=== PATIENT | female | born 1995 | race Caucasian/White ===

== ENCOUNTER 2016-03-07 11:41 | Emergency (ER) | payer OTHER ==
[~2016-03-07] VITALS: Ht 162.6 cm; Wt 64.9 kg
[~2016-03-07 11:41] MED LIST: LAMO150T PO; SERT-234 PO
[2016-03-07 11:55] VITALS: TEMP 36.8; Ht 162.6 cm; Wt 64.9 kg
[2016-03-07 13:19] LABS: BASO % 0.1 %; BASO ABS # 0.01 K/uL (0-0.2); COMPLETE YES; EOS % 0.9 %; HEMATOCRIT 36.3 % (37-47); IG% 0.1 %; LYMPH % 20.3 %; LYMPH ABS # 1.38 K/uL (1.2-3.4); MEAN CELL VOLUME 87.5 fL (80-100); MEAN CORPUSCULAR HEMOGLOBIN 30.6 pg (25-34); MEAN PLATELET VOLUME 10.9 fL (7.4-10.4); NEUT % 70.6 %; PLATELET COUNT 178 K/uL (130-400); RED BLOOD COUNT 4.15 M/uL (4.2-5.4); WHITE BLOOD COUNT 6.79 K/uL (4.8-10.8)
[2016-03-07 13:36] LABS: BUN/CREATININE RATIO 9.5 (10-20); CALCIUM 8.7 mg/dl (8.5-10.1); CREATININE 0.69 mg/dl (0.60-1.20); POTASSIUM 3.7 mmol/L (3.5-5.1)
[2016-03-07 13:39] LABS: URINE APPEARANCE CLOUDY (CLEAR); URINE BILIRUBIN NEG (NEG); URINE COLOR DK YELLOW; URINE EPITHELIAL CELL AUTO >30 /lpf (0-5); URINE NITRITE NEG (NEG); URINE SPECIFIC GRAVITY 1.035 (1.000-1.030); UROBILINOGEN NEG (NEG)
[2016-03-07 13:42] LABS: MANUAL MICROSCOPIC REQUIRED? NO; REVIEW REQ? NO
--- NOTE | 2016-03-07 14:51 | DIAGNOSTIC IMAGING REPORT ---
ECTOPIC ULTRASOUND (TRANSABDOMINAL AND ENDOVAGINAL SCANNING) CLINICAL HISTORY: and vaginal bleeding COMPARISON STUDY: 02/12/2016 FINDINGS: A single alive intrauterine gestation was identified. The heart rate was 159. A yolk sac measuring 4 mm was identified. The crown-rump length was 15 mm corresponding to an estimated postmenstrual age of 7 weeks and 6 days. The maternal adnexa were unremarkable in appearance. IMPRESSION: Single alive intrauterine . The estimated postmenstrual age is 7 weeks 6 days. Electronically signed by: Yobany Chaney M.D. 03/07/2016 2:49 PM
[2016-03-07 15:25] LABS: PROTHROMBIN TIME (PATIENT) 10.3 SECONDS (9.0-12.0)
--- NOTE | 2016-03-07 15:29 | EMERGENCY ROOM VISIT NOTE ---
ED Visit Note First contact with patient: 12:11 CHIEF COMPLAINT: Vaginal bleeding, 6-8 weeks HISTORY OF PRESENT ILLNESS: Patient is a roughly 6 week 20 year- old white female who presents to the emergency complaint accompanied by a male friend for evaluation of vaginal bleeding that started this morning. Patient was seen here in the emergency department on 02/12/16, and found to have an early . She reports that her last menstrual period was 01/12/2016. She had positive home tests at home. She had an appointment to be seen by Dr. Au, but apparently it was canceled and was rescheduled for 2 days from now. She has yet to see OB. Patient states that she has been feeling well until today. She noticed bright red blood in her underwear when she wiped after urinating at home this morning. She also notes some pelvic cramping and sharp shooting pains into the vaginal area which are improving as the morning has gone on. When she provided a urine sample here in the emergency department, she had some pink discharge. She continues to note some mild cramping that she rates a 4/10. REVIEW OF SYSTEMS: Review of systems as per HPI. All other systems reviewed were negative. 10 systems reviewed. PMH: Electronic medical records are reviewed and summarized as above/below. See Problem List. SOCIAL HISTORY: Patient lives at home with her son. Nonsmoker, denies alcohol use. She is unemployed.. PHYSICAL EXAM: Vital Signs: Reviewed Nurse's notes. CONSTITUTIONAL: Patient is a well-appearing 20-year-old white female who is awake and alert and in no acute distress. Vital signs are stable. EYES: Pupils equal, round, reactive to light and accommodation. EOMs intact without nystagmus. Sclera are anicteric. ENT: Tympanic membranes intact, with normal landmarks. External canals are clear. Oral and nasopharynx are clear. Mucous membranes are moist, no lesions , tongue and gums appear normal. NECK: Supple without lymphadenopathy. No thyromegaly. No meningeal signs. Full active range of motion without discomfort. CARDIOVASCULAR: Regular rate and rhythm, with normal S1 and S2, no murmur or gallop or rub is heard. No carotid bruits auscultated. No JVD. Peripheral pulses easily palpable. RESPIRATORY: Breath sounds equal and clear to auscultation without wheezes, rales, or rhonchi heard. Full and equal chest expansion without accessory muscle use or retractions. ABDOMEN: Bowel sounds are present. Abdomen is soft, slightly tender in the suprapubic region without guarding, rebound or rigidity. There is no right or left lower quadrant pain. INTEGUMENTARY: No lesions or rash, normal skin turgor. LYMPH: No lymphadenopathy. EMERGENCY DEPARTMENT COURSE: The patient was seen and examined as above. Her old records were reviewed, including her ED visit from about a month ago. Her blood type is A+ based on labs from that day. Repeat quantitative hCG, CBC, BMP and urinalysis were drawn. Pelvic ultrasound was performed. Her quantitative hCG is 61,167, which is consistent with her dates. BMP is unremarkable. Her white count was not elevated. She is not anemic. Urinalysis does show moderate leuk esterase, greater than 30 WBCs and 2+ bacteria. There is greater than 30 epithelial cells indicating contamination. She reports frequent UTIs. She was treated with Keflex just last month. Urine culture from that time did not grow any pathologic bacteria. Given this, repeat urine culture was ordered, but no antibiotics were described. Pelvic ultrasound confirms a single viable intrauterine measuring 6 weeks, 67 weeks 6 days with confirmed cardiac activity at 159 beats per minute. No other abnormalities were noted. The patient was reassured. Bleeding precautions were outlined. She was encouraged to keep her appointment with OB as she has scheduled for this Saturday. Differential diagnoses entertained included spontaneous , threatened , ectopic , PID, tubo-ovarian abscess, cervicitis, UTI, cystitis, among others. ECTOPIC ULTRASOUND (TRANSABDOMINAL AND ENDOVAGINAL SCANNING) CLINICAL HISTORY: and vaginal bleeding COMPARISON STUDY: 02/12/2016 FINDINGS: A single alive intrauterine gestation was identified. The heart rate was 159. A yolk sac measuring 4 mm was identified. The crown-rump length was 15 mm corresponding to an estimated postmenstrual age of 7 weeks and 6 days. The maternal adnexa were unremarkable in appearance. IMPRESSION: Single alive intrauterine . The estimated postmenstrual age is 7 weeks 6 days. Problem List Medical Problems: (1) Abdominal cramping Status: Resolved (2) Abdominal pain during Status: Resolved (3) Acute bronchitis Status: Resolved (4) Altered mental status Status: Resolved (5) Anxiety Status: Chronic (6) Asthma Status: Chronic (7) Chest pain Status: Resolved (8) Corneal abrasion due to contact lens Status: Resolved (9) Cough Status: Resolved (10) Cough Status: Resolved (11) Cough Status: Resolved (12) Dental trauma Status: Resolved (13) Dermatitis Status: Resolved (14) Dysfunctional uterine bleeding Status: Resolved (15) Epilepsy, Unsp, Not Intractable, Without Status Epilepticus Status: Chronic (16) Female pelvic pain Status: Resolved (17) LLQ abdominal pain Status: Resolved (18) Major Depressive Disorder, Recurrent, Moderate Status: Chronic (19) Paronychia of right middle finger Status: Resolved (20) Post-Traumatic Stress Disorder, Unspecified Status: Chronic (21) Status: Resolved (22) Seizures Status: Resolved (23) Sinusitis Status: Resolved (24) Stomach ulcer Status: Resolved (25) Suicide attempt Status: Resolved (26) Threatened miscarriage Status: Resolved (27) Tylenol overdose Status: Resolved (28) Urinary tract infection Status: Resolved (29) UTI (urinary tract infection) Status: Resolved (30) Vomiting Status: Resolved Surgical Problems: (1) H/O wisdom tooth extraction Status: Resolved Current/Historical Medications Scheduled Lamotrigine (Lamictal), 150 MG PO BID Sertraline (Zoloft), 100 MG PO DAILY Allergies Coded Allergies: POLLEN (Verified Allergy, Intermediate, runny eyes, sneezing, 03/07/16) Acetaminophen (Unverified Allergy, Unknown, POISONING, 03/07/16) Vital Signs Date Time Temp Pulse Resp B/P Pulse Ox O2 Delivery O2 Flow Rate FiO2 03/07/16 15:44 65 18 112/41 99 Room Air 03/07/16 14:48 68 20 128/56 98 Room Air 03/07/16 11:55 36.8 81 18 122/59 99 Room Air Laboratory Results 03/07/16 13:05 Red Blood Count 4.15, Mean Corpuscular Volume 87.5, Mean Corpuscular Hemoglobin 30.6, Mean Corpuscular Hemoglobin Concent 35.0, Mean Platelet Volume 10.9, Neutrophils (%) (Auto) 70.6, Lymphocytes (%) (Auto) 20.3, Monocytes (%) (Auto) 8.0, Eosinophils (%) (Auto) 0.9, Basophils (%) (Auto) 0.1, Neutrophils # (Auto) 4.79, Lymphocytes # (Auto) 1.38, Monocytes # (Auto) 0.54, Eosinophils # (Auto) 0.06, Basophils # (Auto) 0.01 03/07/16 13:05 Test 03/07/16 12:50 03/07/16 13:05 03/07/16 14:50 Urine Color DK YELLOW Urine Appearance CLOUDY (CLEAR) Urine pH 6.0 (4.5-7.5) Urine Specific [place] 1.035 (1.000-1.030) Urine Protein TRACE (NEG) Urine Glucose (UA) NEG (NEG) Urine Ketones NEG (NEG) Urine Occult Blood NEG (NEG) Urine Nitrite NEG (NEG) Urine Bilirubin NEG (NEG) Urine Urobilinogen NEG (NEG) Urine Leukocyte Esterase MODERATE (NEG) Urine WBC (Auto) >30 /hpf (0-5) Urine RBC (Auto) 0-4 /hpf (0-4) Urine Hyaline Casts (Auto) 10-30 /lpf (0-5) Urine Epithelial Cells (Auto) >30 /lpf (0-5) Urine Bacteria (Auto) 2+ (NEG) White Blood Count 6.79 K/uL (4.8-10.8) Red Blood Count 4.15 M/uL (4.2-5.4) Hemoglobin 12.7 g/dL (12.0-16.0) Hematocrit 36.3 % (37-47) Mean Corpuscular Volume 87.5 fL (80-100) Mean Corpuscular Hemoglobin 30.6 pg (25-34) Mean Corpuscular Hemoglobin Concent 35.0 g/dl (32-36) Platelet Count 178 K/uL (130-400) Mean Platelet Volume 10.9 fL (7.4-10.4) Neutrophils (%) (Auto) 70.6 % Lymphocytes (%) (Auto) 20.3 % Monocytes (%) (Auto) 8.0 % Eosinophils (%) (Auto) 0.9 % Basophils (%) (Auto) 0.1 % Neutrophils # (Auto) 4.79 K/uL (1.4-6.5) Lymphocytes # (Auto) 1.38 K/uL (1.2-3.4) Monocytes # (Auto) 0.54 K/uL (0.11-0.59) Eosinophils # (Auto) 0.06 K/uL (0-0.5) Basophils # (Auto) 0.01 K/uL (0-0.2) RDW Standard Deviation 40.7 fL (36.4-46.3) RDW Coefficient of Variation 12.6 % (11.5-14.5) Immature Granulocyte % (Auto) 0.1 % Immature Granulocyte # (Auto) 0.01 K/uL (0.00-0.02) Anion Gap 9.0 mmol/L (3-11) Est Creatinine Clear Calc Drug Dose 112.4 ml/min Estimated GFR () 145.2 Estimated GFR (Non- 125.3 BUN/Creatinine Ratio 9.5 (10-20) Calcium Level 8.7 mg/dl (8.5-10.1) Human Chorionic Gonadotropin, Quant 22653 mIU/mL Prothrombin Time 10.3 SECONDS (9.0-12.0) Prothromb Time International Ratio 1.0 (0.9-1.1) Activated Partial Thromboplast Time 26.0 SECONDS (21.0-31.0) Partial Thromboplastin Ratio 1.0 Departure Information Impression Primary Impression: Vaginal bleeding in patient at less than 20 weeks gestation Referrals Sumanth Scruggs M.D. (PCP) Patient Instructions [facility], [facility] Additional Instructions Acetaminophen(Tylenol) may be used for fever or pain. Use 1000mg every six hours as needed. Avoid using more than 3000mg in a 24 hour period. Rest and avoid any heavy lifting or strenuous activity. Strict vaginal rest-no tampons, douching or intercourse. Drink plenty of fluids. Diet as tolerated. Follow up with [facility] Saturday as scheduled. Return to the ED for worsening pain, heavier bleeding (soaking a pad in an hour or less, passing clots larger than your fist), lightheadedness, dizziness, passing out, worsening of her condition or as needed.
[2016-03-07 15:44] VITALS: BP 112/41; PULSE 65; O2SAT 99
== END 2016-03-07 15:49 | disposition home or self-care (01) ==
LOC: C.EDB 11:43 → C.EDC 15:49
DX: O99.89 Other specified diseases and conditions complicating pregnancy, childbirth and the puerperium (principal); N93.9 Abnormal uterine and vaginal bleeding, unspecified; Z3A.01 Less than 8 weeks gestation of pregnancy; Z79.899 Other long term (current) drug therapy

== ENCOUNTER 2017-02-03 00:27 | Emergency (ER) | payer OTHER ==
[~2017-02-03] VITALS: Ht 162.6 cm; Wt 70.3 kg
[~2017-02-03 00:27] MED LIST changes: -LAMO150T PO; +LAMO150T32 PO
[2017-02-03 00:31] VITALS: TEMP 36.9; O2SAT 100; Ht 162.6 cm; Wt 70.3 kg
[2017-02-03] MEDS ORDERED: SODIUM CHLORIDE 0.9% 1000ML 1,000 ML IV ONE (00:45)
[2017-02-03 00:49] LABS: BASO % 0.2 %; BASO ABS # 0.01 K/uL (0-0.2); COMPLETE YES; EOS % 2.3 %; HEMATOCRIT 39.3 % (37-47); IG% 0.3 %; LYMPH ABS # 1.93 K/uL (1.2-3.4); MEAN CELL VOLUME 89.9 fL (80-100); MEAN CORPUSCULAR HEMOGLOBIN 30.4 pg (25-34); MEAN CORPUSCULAR HGB CONC 33.8 g/dl (32-36); MEAN PLATELET VOLUME 10.8 fL (7.4-10.4); MONO % 9.5 %; NEUT % 55.7 %; PLATELET COUNT 218 K/uL (130-400); RED BLOOD COUNT 4.37 M/uL (4.2-5.4); WHITE BLOOD COUNT 6.03 K/uL (4.8-10.8)
[2017-02-03 00:56] LABS: ALT/SGPT 46 U/L (12-78); AST/SGOT 19 U/L (15-37); BLOOD UREA NITROGEN 12 mg/dl (7-18); BUN/CREATININE RATIO 15.5 (10-20); CALCIUM 8.7 mg/dl (8.5-10.1); CARBON DIOXIDE 27 mmol/L (21-32); CHLORIDE 106 mmol/L (98-107); CREATININE 0.74 mg/dl (0.60-1.20); GLUCOSE 92 mg/dl (70-99); MAGNESIUM 1.9 mg/dl (1.8-2.4); POTASSIUM 3.8 mmol/L (3.5-5.1); SODIUM 140 mmol/L (136-145)
[2017-02-03 01:07] LABS: ALB/GLOB RATIO 1.2 (0.9-2); ALKALINE PHOSPHATASE 76 U/L (45-117)
[2017-02-03] MEDS ORDERED: MEDR150I INJ (01:26)
[2017-02-03 02:46] LABS: URINE APPEARANCE CLOUDY (CLEAR); URINE BILIRUBIN NEG (NEG); URINE COLOR YELLOW; URINE EPITHELIAL CELL AUTO >30 /lpf (0-5); URINE NITRITE NEG (NEG); URINE SPECIFIC GRAVITY 1.029 (1.000-1.030); UROBILINOGEN NEG (NEG); ZZUR CULT IF INDIC CLEAN CATCH YES
[2017-02-03 02:47] LABS: MANUAL MICROSCOPIC REQUIRED? NO; REVIEW REQ? NO
[2017-02-03 03:02] LABS: BENZODIAZEPINE, URINE NEG (NEG); COCAINE,URINE NEG (NEG); PHENCYCLIDINE, URINE NEG (NEG)
[2017-02-03 03:12] VITALS: BP 127/73; PULSE 76; O2SAT 100
--- NOTE | 2017-02-03 06:55 | EMERGENCY ROOM VISIT NOTE ---
History First contact with patient: 00:29 Chief Complaint: SYNCOPE Stated Complaint: SYNCOPE Nursing Triage Summary: Patient arrived ALS for evaluation s/p syncopal episode. Patient reports she was drinking a little bit tonight. She was at home and walked into kitchen, developed pain in her head, and then fainted. Patient has hx epilepsy, last seizure was 2 yrs ago. Patient did not take medicine last night or this morning. Patient reports she drank "a lot" last night and fell down some steps so her body feels sore. Patient reports slight headache upon arrival to ED. History of Present Illness The patient is a 21 year old female who presents to the Emergency Room via ambulance with complaints of syncopal episode that occurred about one hour ago. The patient states that she had a mild headache, walk into her kitchen, felt dizzy, then fainted. The patient does have a history of epilepsy, however this was different from her epileptic seizures. She will have an aura prior to epilepsy, and she has not had a seizure in the past 2 years. The patient states that she typically does not drink alcohol, but for the past 2 days did have larger amounts of alcohol than normal. She has not been ill recently and denies chance of . She rates her discomfort a 0/10 at this time. She does not have chest pain, chest tightness, shortness of breath, or abdominal pain. EMS reports the patient was not postictal, and has been acting appropriate. Review of Systems More than 10 systems were reviewed and otherwise negative with the exception of history of present illness. Past Medical/Surgical History Medical Problems: (1) Abdominal cramping (2) Abdominal pain during (3) Acute bronchitis (4) Altered mental status (5) Anxiety (6) Asthma (7) Chest pain (8) Corneal abrasion due to contact lens (9) Cough (10) Cough (11) Cough (12) Dental trauma (13) Dermatitis (14) Dysfunctional uterine bleeding (15) Epilepsy, Unsp, Not Intractable, Without Status Epilepticus (16) Female pelvic pain (17) LLQ abdominal pain (18) Major Depressive Disorder, Recurrent, Moderate (19) Overdose on Tylenol (20) Paronychia of right middle finger (21) Post-Traumatic Stress Disorder, Unspecified (22) (23) Seizures (24) Sinusitis (25) Stomach ulcer (26) Suicide attempt (27) Threatened miscarriage (28) Tylenol overdose (29) Urinary tract infection (30) UTI (urinary tract infection) (31) Vomiting Surgical Problems: (1) H/O wisdom tooth extraction Family History Seizures Social History Smoking Status: Current Every Day Smoker Alcohol Use: none Drug Use: none Marital Status: in relationship Housing Status: lives with family Occupation Status: unemployed Current/Historical Medications Scheduled Lamotrigine (Lamictal), 150 MG PO BID Medroxyprogesterone Acetate (C (Depo-Provera Contraceptiv), 1 DOSE INJ Q 3 MONTHS Allergies Coded Allergies: POLLEN (Verified Allergy, Intermediate, runny eyes, sneezing, 02/03/17) Acetaminophen (Unverified Allergy, Unknown, POISONING, 02/03/17) Physical Exam Vital Signs Date Time Temp Pulse Resp B/P (MAP) Pulse Ox O2 Delivery O2 Flow Rate FiO2 02/03/17 03:12 76 18 127/73 100 Room Air 02/03/17 01:11 63 18 117/59 100 Room Air 02/03/17 00:37 64 02/03/17 00:31 36.9 67 18 146/62 100 Room Air 02/03/17 00:31 100 Room Air Physical Exam VITALS: Vitals are noted on the nurse's note and reviewed by myself. Vital signs stable. GENERAL: Well-developed, well-nourished, white female, who is in no acute distress and resting comfortably. Patient is cooperative with the examination. HEAD: Normocephalic atraumatic. EARS: External ear normal. External auditory canals clear, tympanic membranes pearly leger without erythema or effusion bilaterally. EYES: Pupils equal round and reactive to light and accommodation. Conjunctivae without injection, sclerae without icterus. Extraocular movements intact. NOSE: Patent, turbinates without inflammation or discharge. MOUTH: Mucous membranes moist. Tonsils are not enlarged. Pharynx without erythema, blood, or exudate. Uvula midline. Airway patent. NECK: Supple without nuchal rigidity. No lymphadenopathy. No thyromegaly. Cervical spine is nontender. HEART: Regular rate and rhythm without murmurs gallops or rubs. LUNGS: Clear to auscultation bilaterally without wheezes, rales or rhonchi. No retractions or accessory muscle use. ABDOMEN: Positive normal bowel sounds x 4. Soft, nontender, without masses or organomegaly. No guarding or rebound tenderness. MUSCULOSKELETAL: No muscle atrophy, erythema, or edema noted. Full range of motion without joint tenderness in all extremities. No tenderness to palpation. Normal gait. Strength 5/5 throughout. NEURO: Patient was alert and oriented to person place and time. CN II through XII grossly intact. Deep tendon reflexes 2+ throughout. No focal neurological deficits SKIN: The skin was without rashes, erythema, edema, or bruising. Capillary reflex less than 2 seconds. Medical Decision & Procedures ER Provider Diagnostic Interpretation: Preliminary Findings Only See Final Report For Complete Findings CT HEAD: Comparison: CT head November 07, 2015 Impression: No acute intraparenchymal hemorrhage, territorial infarct, mass, midline shift or extra axial fluid collection Comment: Slightly prominent temporal horn of the right lateral ventricle, likely a normal variant. Stable from prior study. Posterior fossa is normal Sinuses are clear. Calvarium is intact No soft tissue abnormality Laboratory Results 02/03/17 00:20 Red Blood Count 4.37, Mean Corpuscular Volume 89.9, Mean Corpuscular Hemoglobin 30.4, Mean Corpuscular Hemoglobin Concent 33.8, Mean Platelet Volume 10.8, Neutrophils (%) (Auto) 55.7, Lymphocytes (%) (Auto) 32.0, Monocytes (%) (Auto) 9.5, Eosinophils (%) (Auto) 2.3, Basophils (%) (Auto) 0.2, Neutrophils # (Auto) 3.36, Lymphocytes # (Auto) 1.93, Monocytes # (Auto) 0.57, Eosinophils # (Auto) 0.14, Basophils # (Auto) 0.01 02/03/17 00:20 Test 02/03/17 00:20 02/03/17 00:46 02/03/17 02:30 White Blood Count 6.03 K/uL (4.8-10.8) Red Blood Count 4.37 M/uL (4.2-5.4) Hemoglobin 13.3 g/dL (12.0-16.0) Hematocrit 39.3 % (37-47) Mean Corpuscular Volume 89.9 fL (80-100) Mean Corpuscular Hemoglobin 30.4 pg (25-34) Mean Corpuscular Hemoglobin Concent 33.8 g/dl (32-36) Platelet Count 218 K/uL (130-400) Mean Platelet Volume 10.8 fL (7.4-10.4) Neutrophils (%) (Auto) 55.7 % Lymphocytes (%) (Auto) 32.0 % Monocytes (%) (Auto) 9.5 % Eosinophils (%) (Auto) 2.3 % Basophils (%) (Auto) 0.2 % Neutrophils # (Auto) 3.36 K/uL (1.4-6.5) Lymphocytes # (Auto) 1.93 K/uL (1.2-3.4) Monocytes # (Auto) 0.57 K/uL (0.11-0.59) Eosinophils # (Auto) 0.14 K/uL (0-0.5) Basophils # (Auto) 0.01 K/uL (0-0.2) RDW Standard Deviation 44.3 fL (36.4-46.3) RDW Coefficient of Variation 13.4 % (11.5-14.5) Immature Granulocyte % (Auto) 0.3 % Immature Granulocyte # (Auto) 0.02 K/uL (0.00-0.02) Anion Gap 7.0 mmol/L (3-11) Est Creatinine Clear Calc Drug Dose 115.7 ml/min Estimated GFR () 134.2 Estimated GFR (Non- 115.8 BUN/Creatinine Ratio 15.5 (10-20) Calcium Level 8.7 mg/dl (8.5-10.1) Magnesium Level 1.9 mg/dl (1.8-2.4) Total Bilirubin 0.3 mg/dl (0.2-1) Aspartate Amino Transf (AST/SGOT) 19 U/L (15-37) Alanine Aminotransferase (ALT/SGPT) 46 U/L (12-78) Alkaline Phosphatase 76 U/L (45-117) Total Creatine Kinase 188 U/L (26-192) Troponin I < 0.015 ng/ml (0-0.045) Total Protein 7.1 gm/dl (6.4-8.2) Albumin 3.9 gm/dl (3.4-5.0) Globulin 3.2 gm/dl (2.5-4.0) Albumin/Globulin Ratio 1.2 (0.9-2) Thyroid Stimulating Hormone (TSH) 3.670 uIu/ml (0.300-4.500) Ethyl Alcohol mg/dL < 3.0 mg/dl (0-3) Urine Color YELLOW Urine Appearance CLOUDY (CLEAR) Urine pH 7.0 (4.5-7.5) Urine Specific [place] 1.029 (1.000-1.030) Urine Protein NEG (NEG) Urine Glucose (UA) NEG (NEG) Urine Ketones TRACE (NEG) Urine Occult Blood 1+ (NEG) Urine Nitrite NEG (NEG) Urine Bilirubin NEG (NEG) Urine Urobilinogen NEG (NEG) Urine Leukocyte Esterase SMALL (NEG) Urine WBC (Auto) 10-30 /hpf (0-5) Urine RBC (Auto) 0-4 /hpf (0-4) Urine Hyaline Casts (Auto) 10-30 /lpf (0-5) Urine Epithelial Cells (Auto) >30 /lpf (0-5) Urine Bacteria (Auto) 1+ (NEG) Urine Test NEG (NEG) Urine Opiates Screen NEG (NEG) Urine Methadone, Qualitative NEG (NEG) Urine Barbiturates NEG (NEG) Urine Phencyclidine (PCP) Level NEG (NEG) Ur Amphetamine/Methamphetamine NEG (NEG) MDMA (Ecstasy) Screen NEG (NEG) Urine Benzodiazepines Screen NEG (NEG) Urine Cocaine Metabolite NEG (NEG) Urine Marijuana (THC) NEG (NEG) Medications Administered Medications (Trade) Dose Ordered Sig/John Route Start Time Stop Time Status Last Admin Dose Admin Sodium Chloride 1,000 ml @ 999 mls/hr Q1H1M ONCE IV 02/03/17 00:45 02/03/17 01:45 DC 02/03/17 00:50 999 MLS/HR ED Course Physical exam and history were performed. Nursing notes, EMR, and Medication List were personally reviewed. Patient appears to have reports of syncopal episode that occurred at home. She does have a mild headache, however she did have this before the episode. The patient believes that she may be dehydrated as she has been drinking more alcohol than normal the past 2 days. Her episode today is not similar to her normal epileptic seizures. IV access was established and labs were obtained. The patient was hydrated with normal saline. CT scan of her head was performed. The patient was cared for under seizure precautions. The patient's blood work is as above and was reviewed. She does not have a significant elevated white blood cell count, gross anemia, bandemia, or significant electrolytic imbalance. Lipase and transaminases are nondiagnostic. Troponin 1 is negative. EKG was sinus rhythm without acute ST elevation. Urine was without obvious infection here and she is not . CT scan of the head does not show significant acute findings. Overall the patient appears well at this time. I suspect that her symptoms are accommodation of dehydration and recent alcohol use. I do not suspect that she had a seizure based on the history at this time. The patient was asked to follow with her primary care physician for further care and management. She was certainly invited back to the emergency department with any new, worsening, or concerning symptoms. The patient rated her discomfort a 0/10 at the time of departure. The chart was completed utilizing [employer] Speech Voice Recognition Software. Grammatical errors, random word insertions, pronoun errors, and incomplete sentences are an occasional consequence of this system due to software limitations, ambient noise, and hardware issues. Any formal questions or concerns about the content, text, or information contained within the body of this dictation should be directly addressed to the provider for clarification. . Medical Decision Differential diagnosis: Etiologies such as vasovagal event, infection, hypoglycemia, electrolyte abnormalities, cardiac sources, intracerebral event, toxicologic, neurologic, as well as others were entertained. Impression Primary Impression: Syncope Departure Information Dispostion Home / Self-Care Condition GOOD Referrals No Doctor, Assigned (PCP) Forms HOME CARE DOCUMENTATION FORM, IMPORTANT VISIT INFORMATION Patient Instructions My [facility] Additional Instructions You were seen and evaluated today on an emergency basis only. This is not a substitute for, or an effort to provide, complete comprehensive medical care. It is not possible to recognize and treat all injuries or illnesses in a single emergency department visit. For this reason it is recommended that you followup with your primary care physician this week for ongoing care and evaluation. Drink plenty of fluids and remain well hydrated. Take medications as prescribed. You are welcome to return to the emergency department anytime with new, worsening, or concerning symptoms.
--- NOTE | 2017-02-03 07:36 | DIAGNOSTIC IMAGING REPORT ---
CT SCAN OF THE BRAIN WITHOUT IV CONTRAST CLINICAL HISTORY: Syncope. Head injury. COMPARISON STUDY: CT of the brain dated 11/07/2015. TECHNIQUE: Unenhanced axial CT scan of the brain is performed from the vertex to the skull base. A dose lowering technique was utilized adhering to the principles of ALARA. CT DOSE: 537.48 mGy.cm FINDINGS: Brain parenchyma: The brain parenchyma is normal in appearance. There is no hemorrhage, mass effect, or evidence of acute territorial ischemia by CT criteria. Bridges-white matter is preserved. No extra-axial fluid collection is seen. Ventricles, sulci, cisterns: Normal in configuration. Intracranial vasculature: The visualized intracranial vasculature at the skull base is normal in appearance. Calvarium: There is no depressed calvarial fracture. Sinuses and mastoids: The visualized paranasal sinuses are clear. The mastoid air cells are well pneumatized. Orbits: The bony orbits are grossly intact. IMPRESSION: No acute intracranial abnormality. Electronically signed by: Daren Estrada M.D. 02/03/2017 7:35 AM Dictated Date/Time: 02/03/2017 7:33 AM
== END 2017-02-03 03:17 | disposition home or self-care (01) ==
LOC: EDBD 00:27 → C.EDB 00:28
DX: R55 Syncope and collapse (principal); G40.909 Epilepsy, unspecified, not intractable, without status epilepticus; F32.9 Major depressive disorder, single episode, unspecified; Z79.899 Other long term (current) drug therapy; Z87.09 Personal history of other diseases of the respiratory system; Z87.440 Personal history of urinary (tract) infections; Z82.0 Family history of epilepsy and other diseases of the nervous system

== ENCOUNTER 2017-04-10 16:25 | Emergency (ER) | payer OTHER ==
[~2017-04-10] VITALS: Ht 162.6 cm; Wt 71.2 kg
[~2017-04-10 16:25] MED LIST changes: +LAMO150T PO; -LAMO150T32 PO; +MEDR150I INJ; -SERT-234 PO
[2017-04-10 16:32] VITALS: TEMP 37; Ht 162.6 cm; Wt 71.2 kg
[2017-04-10] MEDS ORDERED: ABL10 PO (16:43)
[2017-04-10] MEDS ORDERED: LAMO150T PO (16:43)
--- NOTE | 2017-04-10 16:54 | EMERGENCY ROOM VISIT NOTE ---
ED Visit Note First contact with patient: 16:40 CHIEF COMPLAINT: Cough HISTORY of present illness: This 21-year-old female presents the ER with HER-2 children who are also sick with chief complaint that she's had a cough for the past 3 days. The patient denies any fever or body aches. She does admit to intermittent ear pain and pain in her chest when she coughs. The patient has not taken anything for the cough. The patient denies any history of asthma or COPD. The patient is a smoker. REVIEW OF SYSTEMS: 6 system review was performed and was negative unless stated otherwise in history of present illness. PMH: The patient is healthy; seizure disorder SOCIAL HISTORY: Patient lives with her family. The patient admits to tobacco use and occasional alcohol use. PHYSICAL EXAM: Vital Signs were reviewed: Temperature 37.0, blood pressure 107/ 63, pulse 82, respiratory rate 18 Reviewed Nurse's notes and agree. Oxygen saturation is 98 % on room air which is normal . GENERAL: 21-year-old female appears in no acute distress. MENTAL STATUS: Alert, oriented, coherent. EARS: Canals clear. TMs good light reflex, no erythema or fluid level noted. NOSE: Nasal mucosa with minimal erythema engorgement. PHARYNX: No erythema, no edema noted. No exudate noted. Airway is adequate. NECK: Supple, non-tender. No lymphadenopathy noted. LUNGS: Clear to auscultation without wheezes rales or rhonchi. CARDIAC: Regular rate and rhythm without murmur. SKIN: No rashes noted. DIAGNOSIS: Viral upper respiratory infection DISCHARGE INSTRUCTIONS: Recommend [id number] Delsym or Robitussin for cough. If symptoms persist or worsen, follow-up with your family doctor. Patient condition was stable. Please see Emergency Department Medical Record for additional patient information; this may include discharge diagnosis, interpretation of EKG, laboratory, and/or radiologic studies, Emergency Department course, etc. Problem List Medical Problems: (1) Abdominal cramping Status: Resolved (2) Abdominal pain during Status: Resolved (3) Acute bronchitis Status: Resolved (4) Altered mental status Status: Resolved (5) Anxiety Status: Chronic (6) Asthma Status: Chronic (7) Chest pain Status: Resolved (8) Corneal abrasion due to contact lens Status: Resolved (9) Cough Status: Resolved (10) Cough Status: Resolved (11) Cough Status: Resolved (12) Dental trauma Status: Resolved (13) Dermatitis Status: Resolved (14) Dysfunctional uterine bleeding Status: Resolved (15) Epilepsy, Unsp, Not Intractable, Without Status Epilepticus Status: Chronic (16) Female pelvic pain Status: Resolved (17) LLQ abdominal pain Status: Resolved (18) Major Depressive Disorder, Recurrent, Moderate Status: Chronic (19) Paronychia of right middle finger Status: Resolved (20) Post-Traumatic Stress Disorder, Unspecified Status: Chronic (21) Status: Resolved (22) Seizures Status: Resolved (23) Sinusitis Status: Resolved (24) Stomach ulcer Status: Resolved (25) Suicide attempt Status: Resolved (26) Threatened miscarriage Status: Resolved (27) Tylenol overdose Status: Resolved (28) Urinary tract infection Status: Resolved (29) UTI (urinary tract infection) Status: Resolved (30) Vomiting Status: Resolved Surgical Problems: (1) H/O wisdom tooth extraction Status: Resolved Current/Historical Medications Scheduled Aripiprazole (Abilify), 10 MG PO DAILY Lamotrigine (Lamictal), 150 MG PO BID Allergies Coded Allergies: POLLEN (Verified Allergy, Intermediate, runny eyes, sneezing, 04/10/17) Acetaminophen (Unverified Allergy, Unknown, POISONING, 04/10/17) Vital Signs Date Time Temp Pulse Resp B/P (MAP) Pulse Ox O2 Delivery O2 Flow Rate FiO2 04/10/17 16:32 37.0 82 18 107/63 98 Room Air Departure Information Referrals No Doctor, Assigned (PCP) Patient Instructions [facility]
[2017-04-10 17:15] VITALS: BP 125/59; PULSE 69; O2SAT 97
== END 2017-04-10 17:16 | disposition home or self-care (01) ==
LOC: C.EDB 16:26 → C.EDD 17:16
DX: J06.9 Acute upper respiratory infection, unspecified (principal); F41.9 Anxiety disorder, unspecified; J45.909 Unspecified asthma, uncomplicated; G40.909 Epilepsy, unspecified, not intractable, without status epilepticus; F31.9 Bipolar disorder, unspecified; F43.10 Post-traumatic stress disorder, unspecified; Z79.899 Other long term (current) drug therapy; Z88.6 Allergy status to analgesic agent; Z91.048 Other nonmedicinal substance allergy status

== ENCOUNTER 2017-04-28 02:48 | Inpatient (IN) | payer OTHER ==
[~2017-04-28] VITALS: Ht 162.6 cm; Wt 72.9 kg
[2017-04-28] MEDS ORDERED: SODIUM CHLORIDE 0.9% 1000ML 1,000 ML IV STA (02:59)
[2017-04-28] MEDS ORDERED: OPTIRAY 320 IV PRN (03:15)
[2017-04-28 03:20] LABS: ISTAT CREATININE 0.8 mg/dl (0.6-1.3); ISTAT IONIZED CALCIUM 1.13 mmol/l (1.12-1.32); ISTAT POTASSIUM 5.8 mEq/L (3.3-5.0)
[2017-04-28 04:22] LABS: HEMATOCRIT 38.5 % (37-47); HEMOGLOBIN 13.3 g/dL (12.0-16.0); MEAN CELL VOLUME 87.7 fL (80-100); MEAN CORPUSCULAR HEMOGLOBIN 30.3 pg (25-34); MEAN CORPUSCULAR HGB CONC 34.5 g/dl (32-36); PLATELET COUNT 283 K/uL (130-400); RED CELL DISTRIBUTION WIDTH CV 12.9 % (11.5-14.5); RED CELL DISTRIBUTION WIDTH SD 41.3 fL (36.4-46.3); WHITE BLOOD COUNT 12.79 K/uL (4.8-10.8)
[2017-04-28 04:43] LABS: ALBUMIN 3.9 gm/dl (3.4-5.0); CALCIUM 8.6 mg/dl (8.5-10.1); CREATININE 0.79 mg/dl (0.60-1.20); POTASSIUM 3.8 mmol/L (3.5-5.1)
[2017-04-28 04:45] LABS: TOTAL PROTEIN 7.3 gm/dl (6.4-8.2)
[2017-04-28] MEDS ORDERED: XYLOCAINE 1%/SOD BICARB 20 ML VIAL INFIL ONE (04:45)
[2017-04-28 04:58] LABS: BASO % 0.2 %; BASO ABS # 0.02 K/uL (0-0.2); EOS % 0.4 %; EOS ABS # 0.05 K/uL (0-0.5); IG# 0.07 K/uL (0.00-0.02); LYMPH % 12.1 %; LYMPH ABS # 1.55 K/uL (1.2-3.4); MONO % 5.6 %; MONO ABS # 0.71 K/uL (0.11-0.59); NEUT % 81.2 %; NEUT ABS # 10.39 K/uL (1.4-6.5)
[2017-04-28] MEDS ORDERED: MoRPHine SULFATE 4 MG/ML 1 ML CARP\\VIAL IV STA (05:23)
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
--- NOTE | 2017-04-28 07:18 | DIAGNOSTIC IMAGING REPORT ---
CT R LOWER EXTREMITY WITHOUT CT DOSE: 486.58 mGy.cm CLINICAL HISTORY: Severe right lower leg pain TECHNIQUE: Helical images were acquired in transverse plane. Sagittal and coronal reformatted images were acquired A dose lowering technique was utilized adhering to the principles of ALARA. COMPARISON STUDY: None. FINDINGS: No fractures of the tibia or fibula are visualized. There is age-indeterminate fragmentation at the level of the dorsal surface of the talus. No soft tissue hematomas are visualized within the calf. IMPRESSION: 1. No fractures the tibia or fibula are visualized 2. Age-indeterminate fragmentation at the level of the dorsal surface of the talus Electronically signed by: Yobany Chaney M.D. 04/28/2017 7:17 AM Dictated Date/Time: 04/28/2017 7:14 AM
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
[2017-04-28 08:02] VITALS: O2SAT 97; Ht 162.6 cm; Wt 72.9 kg
[2017-04-28] MEDS ORDERED: MoRPHine SULFATE 4 MG/ML 1 ML CARP\\VIAL ONE (08:02)
[2017-04-28] MEDS ORDERED: NURSING VERBAL MED ORDER ONE ×2 (08:15→16:00)
[2017-04-28] MEDS ORDERED: ONDANSETRON INJ 2 MG/ML 2 ML VIAL ONE (08:26)
[2017-04-28] MEDS ORDERED: OXYCODONE HCL IR 5 MG TAB (IMMEDIATE RELEASE) PO PRN (09:00)
[2017-04-28] MEDS ORDERED: ACETAMINOPHEN 325 MG TAB PO PRN (09:00)
[2017-04-28] MEDS ORDERED: DiphenhydrAMINE HCL 50 MG/ML VIAL IV PRN (09:00)
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
[2017-04-28 09:41] LABS: HEMATOCRIT 35.2 % (37-47); HEMOGLOBIN 12.2 g/dL (12.0-16.0); MEAN CELL VOLUME 87.8 fL (80-100); MEAN CORPUSCULAR HEMOGLOBIN 30.4 pg (25-34); MEAN CORPUSCULAR HGB CONC 34.7 g/dl (32-36); PLATELET COUNT 231 K/uL (130-400); RED CELL DISTRIBUTION WIDTH SD 41.8 fL (36.4-46.3); WHITE BLOOD COUNT 7.97 K/uL (4.8-10.8)
[2017-04-28] MEDS: CeleBREX 200 MG CAP PO SCH (13:10)
[2017-04-28] MEDS: OXYCODONE HCL IR 5 MG TAB (IMMEDIATE RELEASE) PO PRN ×2 (13:13→19:43)
[2017-04-28 14:59] VITALS: BP 108/67; PULSE 60; TEMP 36.5; O2SAT 94
[2017-04-28 15:40] VITALS: O2SAT 94
[2017-04-28] MEDS: ONDANSETRON INJ 2 MG/ML 2 ML VIAL IV PRN (20:57)
[2017-04-28] MEDS: TRAMADOL HCL 50 MG TAB PO PRN ×2 (20:59→21:57)
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
[2017-04-28 23:30] VITALS: BP 118/73; PULSE 56; TEMP 36.8; O2SAT 98
[2017-04-29] MEDS: OXYCODONE HCL IR 5 MG TAB (IMMEDIATE RELEASE) PO PRN (06:21)
[2017-04-29] MEDS: RIVAROXABAN 10 MG TAB PO SCH (06:29)
[2017-04-29 07:07] VITALS: BP 119/69; PULSE 57; TEMP 36.5; O2SAT 99
[2017-04-29] MEDS: ARIPIprazole TAB 10 MG TAB PO SCH (08:28)
[2017-04-29] MEDS: CeleBREX 200 MG CAP PO SCH (08:28)
[2017-04-29] MEDS: TRAMADOL HCL 50 MG TAB PO PRN (08:32)
[2017-04-29] MEDS: ONDANSETRON INJ 2 MG/ML 2 ML VIAL IV PRN ×2 (09:37→16:14)
[2017-04-29] MEDS: METOCLOPRAMIDE HCL INJ 5 MG/ML 2 ML VIAL IV. PRN (13:17)
--- NOTE | 2017-04-29 15:18 | Orthopedic Progress Note ---
Orthopedic Progress Note Date of Service Apr 29, 2017. 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 Periph pulses area easily palpable through SLY bandage. Pt has FROM in both knee joints. She state that she vomited x4 today but feels much better after IV Reglan was given. Date Time Temp Pulse Resp B/P (MAP) Pulse Ox O2 Delivery O2 Flow Rate FiO2 04/29/17 07:30 Room Air 04/29/17 07:07 36.5 57 18 119/69 (86) 99 Room Air 04/28/17 23:50 Room Air 04/28/17 23:30 36.8 56 16 118/73 (88) 98 Room Air 04/28/17 15:40 94 Room Air Assessment & Plan Assessment: Closed non-displaced Right talar neck fracture; Closed Non-displaced Left fibular fracture (mid shaft) Plan: Will plan on Discharge to rehab facility tomorrow. Pt can now WBAT on the 's with walker aide Needs cast shoe for Rt foot Cont PO pain control with Oxy IR and Celebrex D/C Tramadol Cont Antiemetic meds PRN Cont PT/OT Cont DVT Prophylaxis as prev ordered Discharge Planning Discharge Planning: rehab hospital Pain Management: Percocet, Celebrex DVT Prophylaxis: Clemente Villalobosrelsweta (Will most likely D/C Xarelto and switch to Aspirin EC 81 mg for discharge if patient is able to ambulate) Therapy: Physical Therapy, Occupational Therapy
[2017-04-29 15:23] VITALS: BP 119/74; PULSE 95; TEMP 36.6; O2SAT 99
--- NOTE | 2017-04-29 15:24 | Discharge Instructions ---
Discharge Instructions Date of Service Apr 29, 2017. Admission Reason for Admission: Closed Fracture Of Neck Of Right Talus Discharge Discharge Diagnosis / Problem: Closed Right talar neck fracture; Closed Left fibular fracture Discharge Goals Goal(s): Decrease discomfort, Improve function, Increase independence Activity Recommendations Activity Limitations: as noted below Lifting Limitations: none Exercise/Sports Limitations: until after follow-up appointment May Resume Sexual Activity: when tolerated Shower/Bathe: tomorrow, keep incision dry Driving or Machine Use: No driving until cleared by managed care specialist Weightbearing Status: Left weightbearing (as tolerated), Right weightbearing ( as tolerated with cast shoe and walker/crutch aide) . Instructions / Follow-Up Instructions / Follow-Up Post-operative Instructions Dear Patient and Family/Friends, Before you are discharged from the hospital, it is important to know what to expect when you get home after surgery. To that end, we have created this sheet of discharge instructions which covers many commonly asked questions. Make sure you go through this sheet in its entirety with your nurse before you are discharged. Please note that we will go over the specifics of your surgery and recovery when you return for your first post-operative visit. Sincerely, Dr. Puckett Pain Expect to be in a fair amount of pain. Remember, our goal is not to eliminate your pain, but to make it tolerable. It is a good idea to stay ahead of your pain by taking the medications you were prescribed once you get home. Typically , the pain starts improving 3-7 days after surgery. You should start weaning off the narcotic pain medication (oxycodone, hydrocodone, hydromorphone, morphine) as soon as your pain improves. Please call our office if your pain is not adequately controlled. Ice Ice your operative site at least 5 times a day for 15-30 minutes at a time. Make sure you have a thin cloth between the ice or cooling unit and your skin to prevent burgess bite. This is especially important if you received a nerve block. Continue icing your operative site for the first 5-7 days after surgery , then as needed. Diet/Nausea/Vomiting Start by drinking clear liquids and eating crackers. If you can tolerate this, then you may resume your normal diet. If you feel nauseated or vomit, take Zofran/ondansetron (if prescribed). Please call our office if you have intractable nausea or vomiting, or, if after hours, you may go to the Emergency Room for help. Constipation Constipation is a common side effect of narcotic pain medication. If you have not had a bowel movement within 2 days after surgery, we recommend purchasing an over the counter laxative such as Milk of Magnesia, Dulcolax, or Miralax from a local pharmacy, and taking it as instructed. Call our clinic if any questions. Slings and Braces If you were placed in a sling or brace, it must be worn at all times, including sleep. You may remove your sling or brace for physical therapy, home exercises , and showering. The length of time you will be in your brace and range of motion restrictions depends on what surgery you had; these details will be reviewed at your first post-operative appointment. Weight bearing and Range of Motion. You may Weight bear as tolerated on both legs Physical therapy You will be given a prescription for physical therapy or occupational therapy at your first post-operative appointment. Typically, patients start therapy within 1 week of surgery Wound care and showering Showering should be done daily HAM stockings If you were given white stockings, these are to be worn at all times except to shower (on both legs) for the first 2 weeks after surgery. Driving You may not drive while taking narcotic pain medication or while in a cast, splint, sling or brace. You, the patient, need to make the final determination about when you are safe to drive, however, the earliest you may consider driving after surgery is below: Hand/Wrist/Elbow Surgery: 3 days Shoulder Surgery: 2 weeks Hip,/Knee/Ankle Surgery: 4 weeks Fracture repair: 6 weeks Return to Work Your return to work depends on what surgery was done and what type of work you do. Please bring any paperwork your employer needs completed to your first post -operative visit. Also, bring a description of your job duties, as this helps us to understand what risks you may face at work. Travel Avoid long distance travel (greater than 1 hour) in airplanes and cars for the first 6 weeks after surgery. If you must travel, you need to have a Doppler ultrasound done before you travel to rule out a blood clot in your legs. Follow-up You should have a follow-up appointment already scheduled 1-2 days after surgery. If not, please contact our office to make this appointment before you leave the hospital. When to call the office It is normal to have swelling and bruising in the limb that was operated on. This will improve with time. It is also normal to have fevers for the first 2 days after surgery. Reasons you should call your doctor include: Uncontrolled pain; Nausea, vomiting, or constipation that does not improve with medication; Fevers over 101.5, chills, sweats; Drainage or bleeding from the wound; Foul odor; Spreading areas of redness; Any other concerns Current Hospital Diet Patient's current hospital diet: Regular Diet Discharge Diet Recommended Diet: Regular Diet Procedures Procedures Performed: Casting of Rt lower leg in ED 04/28/17 Pending Studies Studies pending at discharge: no Medical Emergencies . Who to Call and When: Medical Emergencies: If at any time you feel your situation is an emergency, please call 911 immediately. . Non-Emergent Contact Non-Emergency issues call your: Primary Care Provider Call Non-Emergent contact if: you have a fever, temperature is above 101.5, your pain is not controlled, your pain is worsening, wound has increased drainage, you have any medication questions . "Provider Documentation" section prepared by Ameya Esquivel. . VTE Core Measure Inpt VTE Proph given/why not?: Other Anticoagulation (Currently on Xarelto. Will most likely change to Aspirin EC 81 mg for discharge.) [place] Drug Monitoring Program Search Results: patient reviewed within database, no issues identified, see additional documentation
[2017-04-29 15:35] VITALS: O2SAT 99
[2017-04-29 22:56] VITALS: BP 104/65; PULSE 65; TEMP 36.7; O2SAT 99
[2017-04-29 23:40] VITALS: O2SAT 99
[2017-04-30] MEDS: RIVAROXABAN 10 MG TAB PO SCH (07:14)
[2017-04-30] MEDS: METOCLOPRAMIDE HCL INJ 5 MG/ML 2 ML VIAL IV. PRN (07:37)
[2017-04-30] MEDS: OXYCODONE HCL IR 5 MG TAB (IMMEDIATE RELEASE) PO PRN (07:37)
[2017-04-30] MEDS: ARIPIprazole TAB 10 MG TAB PO SCH (07:45)
[2017-04-30] MEDS: CeleBREX 200 MG CAP PO SCH ×2 (07:45→07:50)
[2017-04-30] MEDS ORDERED: ACETAMINOPHEN 500 MG TAB PO SCH (08:00)
[2017-04-30 08:04] VITALS: BP 113/73; PULSE 65; TEMP 36.6; O2SAT 96
--- NOTE | 2017-04-30 08:08 | Orthopedic Progress Note ---
Orthopedic Progress Note Date of Service Apr 30, 2017. Subjective Additional Notes: Patient thinks Celebrex is upsetting her stomach. Was able to walk several steps around her room yesterday using a walker. Objective capillary refill less than 2 sec., dressing C/D/I, toes mobile Date Time Temp Pulse Resp B/P (MAP) Pulse Ox O2 Delivery O2 Flow Rate FiO2 04/29/17 23:40 99 Room Air 04/29/17 22:56 36.7 65 16 104/65 (78) 99 Room Air 04/29/17 15:35 99 Room Air 04/29/17 15:23 36.6 95 18 119/74 (89) 99 Room Air Assessment & Plan Assessment: Closed non-displaced Right talar neck fracture; Closed Non-displaced Left fibular fracture (mid shaft) Plan: Wean oxycodone May Discharge to rehab facility today WBAT on the LE's with walker aide Cast shoe for Rt foot Switch Celebrex to Naproxen Cont Antiemetic meds PRN Cont PT/OT Cont xarelto for DVT Prophylaxis when inpatient Discharge Planning Discharge Planning: rehab hospital Pain Management: Percocet, Celebrex DVT Prophylaxis: TEDs, Xarelto (Will most likely D/C Xarelto and switch to Aspirin EC 81 mg for discharge if patient is able to ambulate) Therapy: Physical Therapy, Occupational Therapy
[2017-04-30] MEDS ORDERED: ONDANSETRON 4 MG TAB PO PRN (08:15)
[2017-04-30] MEDS ORDERED: OXYCODONE HCL IR 5 MG TAB (IMMEDIATE RELEASE) PO PRN (08:15)
[2017-04-30] MEDS ORDERED: ZFR4 PO (08:42)
[2017-04-30] MEDS ORDERED: NPR375 PO (08:42)
--- NOTE | 2017-04-30 08:56 | Discharge Summary ---
Orthopedic Discharge Summary Admission Date/Reason Apr 28, 2017 at 09:04 Closed Fracture Of Neck Of Right Talus. Discharge Date/Disposition May 01, 2017 Rehab Diagnosis Principal Diagnosis: closed non-displaced Right talar neck fracture; closed non-displaced Left fibular shaft fracture Procedure(s) Performed Rt short leg plaster cast placed in ED on 04/28/17 Medication Reconciliation See Consult note for home meds Discharged on Naproxen 375 mg PO BID x 30 days and Zofran 4 mg PO q 4 hrs prn nausea. Admission Physical Exam As per Admitting Consult note. Hospital Course Patient initially evaluated and treated in ED on 04/28. Admitted for pain control and PT/OT. Had nausea and vomiting treated with Zofran and Reglan. Discontinued Tramadol and Celebrex due to stomach upset. Transitioned from cast to walking boot on RLE on 05/01. Pt is able to WBAT on both LE's with walker assistance. Currently weaning from narcotic meds and will d/c on NSAIDs. Pt will need to go to rehab facility for additional Rehab. We will f/ u with her in our Clinic 2 wks after hospital discharge. She should contact our clinic; [facility] @ . Discharge Instructions Please refer to the electronic Patient Visit Report (Discharge Instructions) for additional information.
[2017-04-30] MEDS: NAPROXEN 375 MG TAB PO SCH ×2 (09:27→21:43)
[2017-04-30 15:59] VITALS: BP 104/61; PULSE 56; TEMP 36.4; O2SAT 96
[2017-04-30 23:19] VITALS: BP 97/57; PULSE 56; TEMP 36.5; O2SAT 96
[2017-04-30 23:40] VITALS: O2SAT 96
[2017-05-01 07:11] VITALS: BP 104/71; PULSE 70; TEMP 36.5; O2SAT 98
[2017-05-01] MEDS: RIVAROXABAN 10 MG TAB PO SCH (07:17)
--- NOTE | 2017-05-01 08:39 | Orthopedic Progress Note ---
Orthopedic Progress Note Date of Service May 01, 2017. Subjective Additional Notes: Legs feeling better this AM. Able to walk around her room comfortably, although she says it's hard to walk on the cast because she's mostly on her toes Objective N/V intact, capillary refill less than 2 sec., A&O x3, toes mobile Date Time Temp Pulse Resp B/P (MAP) Pulse Ox O2 Delivery O2 Flow Rate FiO2 05/01/17 07:11 36.5 70 17 104/71 (82) 98 Room Air 04/30/17 23:40 96 Room Air 04/30/17 23:19 36.5 56 16 97/57 (70) 96 Room Air 04/30/17 15:59 36.4 56 18 104/61 (75) 96 04/30/17 15:42 Room Air 04/30/17 10:53 Room Air Assessment & Plan Assessment: Closed non-displaced Right talar neck fracture; Closed Non-displaced Left fibular fracture (mid shaft) Plan: Will switch from cast to walking boot on RLE this AM. Discontinue oxycodone. Naproxen and tylenol for pain control. May Discharge to rehab facility today WBAT on the LE's with walker aide Cont Antiemetic meds PRN Cont PT/OT Cont xarelto for DVT Prophylaxis when inpatient Discharge Planning Discharge Planning: rehab hospital Pain Management: Percocet, Celebrex DVT Prophylaxis: TEDs, Xarelto (Will most likely D/C Xarelto and switch to Aspirin EC 81 mg for discharge if patient is able to ambulate) Therapy: Physical Therapy, Occupational Therapy
[2017-05-01] MEDS: ARIPIprazole TAB 10 MG TAB PO SCH (09:06)
[2017-05-01] MEDS: NAPROXEN 375 MG TAB PO SCH (09:07)
[2017-05-01 10:22] VITALS: BP 104/71; PULSE 70; TEMP 36.5; O2SAT 98
--- NOTE | 2017-05-01 14:20 | Orthopedic Progress Note ---
Orthopedic Progress Note Date of Service May 01, 2017. 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 Objective calves soft nontender, N/V intact, capillary refill less than 2 sec., A&O x3, toes mobile, CMS intact Date Time Temp Pulse Resp B/P (MAP) Pulse Ox O2 Delivery O2 Flow Rate FiO2 05/01/17 10:22 36.5 70 17 98 Room Air 05/01/17 07:45 Room Air 05/01/17 07:11 36.5 70 17 104/71 (82) 98 Room Air 04/30/17 23:40 96 Room Air 04/30/17 23:19 36.5 56 16 97/57 (70) 96 Room Air 04/30/17 15:59 36.4 56 18 104/61 (75) 96 04/30/17 15:42 Room Air Assessment & Plan Assessment: Closed non-displaced Right talar neck fracture; Closed Non-displaced Left fibular fracture (mid shaft) Plan: Cast removed and placed into high tide cam walking boot on RLE this AM. Discontinue oxycodone. Naproxen and tylenol for pain control. May Discharge to rehab facility today WBAT on the 's with walker aide Cont Antiemetic meds PRN Cont PT/OT Cont xarelto for DVT Prophylaxis when inpatient Discharge Planning Discharge Planning: rehab hospital Pain Management: Percocet, Celebrex DVT Prophylaxis: TEDs, Xarelto (Will most likely D/C Xarelto and switch to Aspirin EC 81 mg for discharge if patient is able to ambulate) Therapy: Physical Therapy, Occupational Therapy
[2017-05-02] MEDS ORDERED: ABL10 PO (16:43)
[2017-05-02] MEDS ORDERED: LAMO150T PO (16:43)
== END 2017-05-01 15:59 | disposition home health service (06) | DRG 563 ==
LOC: EDBD 02:48 → C.EDB 02:49 → C.MSN 09:04 → ENRESERV 09:45
PROVIDERS: ADMIT Orthopaedic Surgery; ATTEND Orthopaedic Surgery
PROC: 2W3LX2Z Immobilization of Right Lower Extremity using Cast (ICD-10-PCS; principal; 2017-04-28)
PROC: 0HQ1XZZ Repair Face Skin, External Approach (ICD-10-PCS; principal; 2017-04-28)
DX: S82.402A Unspecified fracture of shaft of left fibula, initial encounter for closed fracture (principal); S01.111A Laceration without foreign body of right eyelid and periocular area, initial encounter; S92.114A Nondisplaced fracture of neck of right talus, initial encounter for closed fracture; F17.200 Nicotine dependence, unspecified, uncomplicated; Z79.899 Other long term (current) drug therapy; V48.5XXA Car driver injured in noncollision transport accident in traffic accident, initial encounter

== ENCOUNTER 2017-05-02 14:23 | Observation (INO) | payer OTHER ==
[~2017-05-02] VITALS: Ht 162.6 cm; Wt 66.0 kg
[~2017-05-02 14:23] MED LIST changes: -LAMO150T PO; -MEDR150I INJ; +NPR375 PO; +ZFR4 PO
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
--- NOTE | 2017-05-02 15:31 | DIAGNOSTIC IMAGING REPORT ---
L TIBIA/FIBULA 2 VIEWS ROUTINE CLINICAL HISTORY: Left fibular fracture COMPARISON: 04/28/2017 DISCUSSION: There is an oblique/spiral fracture of the fibula at the junction of the proximal and middle one third. There is 3 mm of maximal displacement. IMPRESSION: Oblique/spiral fracture of the fibula at the junction of the proximal and middle one third. There is 3 mm of maximal displacement. Electronically signed by: Yobany Chaney M.D. 05/02/2017 3:30 PM Dictated Date/Time: 05/02/2017 3:28 PM
--- NOTE | 2017-05-02 16:07 | DIAGNOSTIC IMAGING REPORT ---
ULTRASOUND L VENOUS DOPP LOWER EXT UNILAT CLINICAL HISTORY: Recent fx of L fibula, now felt pop and fell. Increased pain COMPARISON STUDY: No previous studies for comparison. FINDINGS: Real-time and color flow Doppler imaging were performed. Flow was seen within the femoral, popliteal and calf veins with no intraluminal thrombus demonstrated. The saphenous vein is patent. IMPRESSION: No evidence of left lower extremity DVT. Electronically signed by: Yobany Chaney M.D. 05/02/2017 4:05 PM Dictated Date/Time: 05/02/2017 4:05 PM
[2017-05-02] MEDS ORDERED: LAMO150T PO (16:43)
[2017-05-02] MEDS ORDERED: OXYCODONE IR HOME PACK PO STA (16:43)
[2017-05-02] MEDS ORDERED: ABL10 PO (16:43)
[2017-05-02] MEDS ORDERED: NAPROXEN 250 MG TAB PO PRN (19:15)
[2017-05-02 20:00] VITALS: BP 103/63; PULSE 90; TEMP 36.7; O2SAT 98; Ht 162.6 cm; Wt 66.0 kg
[2017-05-02] MEDS ORDERED: IV FLUIDS COMPLETED PRN (20:00)
[2017-05-02] MEDS ORDERED: NURSING VERBAL MED ORDER ONE (21:15)
[2017-05-02] MEDS: NAPROXEN 250 MG TAB PO PRN (21:54)
[2017-05-02 23:46] VITALS: BP 103/63; PULSE 71; TEMP 36.8; O2SAT 98
[2017-05-03 07:42] VITALS: BP 112/74; PULSE 71; TEMP 36.6; O2SAT 98
[2017-05-03] MEDS ORDERED: ASPIRIN 325 MG ECTAB PO SCH (09:00)
[2017-05-03] MEDS ORDERED: ARIPIprazole TAB 10 MG TAB PO SCH (09:00)
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
--- NOTE | 2017-05-03 09:42 | Discharge Instructions ---
Discharge Instructions Date of Service May 03, 2017. Admission Reason for Admission: Closed Fracture Of Neck Of Right Talus Discharge Discharge Diagnosis / Problem: Closed Fracture of Left distal fibula and Rt talar neck Discharge Goals Goal(s): Decrease discomfort, Improve function, Increase independence Activity Recommendations Activity Limitations: as noted below Lifting Limitations: none Exercise/Sports Limitations: until after follow-up appointment May Resume Sexual Activity: when tolerated Shower/Bathe: no limitations Driving or Machine Use: No driving until cleared by sensor specialist Weightbearing Status: Left weightbearing (as tolerated with walker use), Right weightbearing (as tolerated with cam boot on and walker use) . Instructions / Follow-Up Instructions / Follow-Up Post-operative Instructions Dear Patient and Family/Friends, Before you are discharged from the hospital, it is important to know what to expect when you get home after surgery. To that end, we have created this sheet of discharge instructions which covers many commonly asked questions. Make sure you go through this sheet in its entirety with your nurse before you are discharged. Please note that we will go over the specifics of your surgery and recovery when you return for your first post-operative visit. Sincerely, Dr. Puckett Pain Expect to be in a fair amount of pain. Remember, our goal is not to eliminate your pain, but to make it tolerable. It is a good idea to stay ahead of your pain by taking the medications you were prescribed once you get home. Typically , the pain starts improving 3-7 days after injury. Ice Ice your operative site at least 5 times a day for 15-30 minutes at a time. Make sure you have a thin cloth between the ice or cooling unit and your skin to prevent burgess bite. This is especially important if you received a nerve block. Continue icing your operative site for the first 5-7 days after surgery , then as needed. Slings and Braces If you were placed in a sling or brace, it must be worn at all times when ambulatory. You may remove your sling or brace for physical therapy, home exercises, and showering. The length of time you will be in your brace and range of motion restrictions depends on what surgery you had; these details will be reviewed at your first post-operative appointment. Weight bearing and Range of Motion. You may bear weigh on both lower extremities with boot on Right foot and walker use. Physical therapy You will be given a prescription for physical therapy or occupational therapy to obtain 3-4 x / week for next several weeks. Follow-up You should have a follow-up appointment scheduled 2 wks after hospital discharge . If not, please contact our office to make this appointment before you leave the hospital. When to call the office It is normal to have swelling and bruising in the limb injured. This will improve with time. Reasons you should call your doctor include: Uncontrolled pain; Nausea, vomiting, or constipation that does not improve with medication. Current Hospital Diet Patient's current hospital diet: Regular Diet Discharge Diet Recommended Diet: Regular Diet Pending Studies Studies pending at discharge: no Medical Emergencies . Who to Call and When: Medical Emergencies: If at any time you feel your situation is an emergency, please call 911 immediately. . Non-Emergent Contact Non-Emergency issues call your: Primary Care Provider Call Non-Emergent contact if: your pain is not controlled, your pain is worsening . "Provider Documentation" section prepared by Ameya Esquivel. . [place] Drug Monitoring Program Search Results: patient reviewed within database, no issues identified, see additional documentation
[2017-05-03] MEDS: NAPROXEN 250 MG TAB PO PRN (09:52)
--- NOTE | 2017-05-03 11:35 | Discharge Summary ---
Orthopedic Discharge Summary Admission Date/Reason May 02, 2017 at 19:20 Closed Fracture Of Neck Of Right Talus. Discharge Date/Disposition May 03, 2017 Home with services (Possible rehab facility if necessary by PT/OT bonnie) Diagnosis Principal Diagnosis: 1. Closed minimally displace Left fibular shaft fracture 2. Closed non displaced Rt talar neck fracture Procedure(s) Performed None Consultations PT/OT and Reconnaissance Man Medication Reconciliation See H&P for meds Admission Physical Exam As per Admitting History & Physical. Hospital Course Uneventful hospital stay last night. Pt aware that she may not meet criteria for transfer to a rehab facility. Cont WBAT on both LE's, with boot on Rt LE and walker or crutch assistance. Cont to Ice and Use Rx Naproxen for pain control. Narcotic meds not indicated. Will need to set up f/u appointment at our clinic. Discharge Instructions Please refer to the electronic Patient Visit Report (Discharge Instructions) for additional information.
[2017-05-03 13:29] VITALS: BP 112/74; PULSE 71; TEMP 36.6; O2SAT 98
[2017-05-03 15:05] VITALS: BP 105/57; PULSE 71; TEMP 36.5; O2SAT 98
== END 2017-05-03 19:30 | disposition home health service (06) ==
LOC: C.EDB 14:25 → C.MSN 19:20 → ENRESERV 19:39
PROVIDERS: ADMIT Orthopaedic Surgery; ATTEND Orthopaedic Surgery
DX: S82.402A Unspecified fracture of shaft of left fibula, initial encounter for closed fracture (principal); S92.114A Nondisplaced fracture of neck of right talus, initial encounter for closed fracture; V89.2XXA Person injured in unspecified motor-vehicle accident, traffic, initial encounter; Z48.02 Encounter for removal of sutures; J45.909 Unspecified asthma, uncomplicated; F17.200 Nicotine dependence, unspecified, uncomplicated; Z88.6 Allergy status to analgesic agent; Z79.899 Other long term (current) drug therapy; Z82.0 Family history of epilepsy and other diseases of the nervous system

== ENCOUNTER → 2017-05-17 | Outpatient (CLI) | payer OTHER ==
[~2017-05-17] MED LIST changes: +ABL10 PO; +LAMO150T PO
== END | disposition home or self-care (01) ==
LOC: C.RDSM 10:58
PROVIDERS: ATTEND Orthopaedic Surgery
DX: T14.8XXA Other injury of unspecified body region, initial encounter (principal); X58.XXXA Exposure to other specified factors, initial encounter

== ENCOUNTER → 2017-06-18 | Outpatient (CLI) | payer OTHER | END | disposition home or self-care (01) | LOC: C.RDSM 13:09 | PROVIDERS: ATTEND Orthopaedic Surgery | DX: S82.202A Unspecified fracture of shaft of left tibia, initial encounter for closed fracture (principal); S82.402A Unspecified fracture of shaft of left fibula, initial encounter for closed fracture; S82.891A Other fracture of right lower leg, initial encounter for closed fracture; X58.XXXA Exposure to other specified factors, initial encounter ==

== ENCOUNTER 2020-01-18 17:52 | Inpatient (IN) ==
[2020-01-19] MEDS ORDERED: SUPERCREAM 0.870% 15 GM JAR EXT PRN (09:37)
[2020-01-19] MEDS ORDERED: diphenhydrAMINE Capsule 25 MG CAP PO PRN (09:37)
[2020-01-19] MEDS ORDERED: HYDROCORTISONE ACETATE 25 MG SUPP PR PRN (09:37)
[2020-01-19] MEDS ORDERED: DIPHTHERIA/TETANUS/PERTUSSIS 0.5 ML SYR/VIAL IM ONE (09:37)
[2020-01-19] MEDS ORDERED: BENZOCAINE 20% AER SPR 82.5 GM CAN EXT PRN (09:37)
[2020-01-19] MEDS ORDERED: oxyCODONE/ACETAMINOPHEN 5mg/325mg TAB PO PRN (09:37)
[2020-01-19] MEDS ORDERED: diphenhydrAMINE 50 MG/ML VIAL IV PRN ×2 (09:37→19:01)
[2020-01-19] MEDS ORDERED: ONDANSETRON INJ 2 MG/ML 2 ML VIAL IV PRN ×2 (09:37→19:01)
[2020-01-19] MEDS ORDERED: IBUPROFEN 600 MG TAB PO PRN (09:37)
[2020-01-19] MEDS ORDERED: SENNA 8.6 MG TAB PO PRN (09:37)
[2020-01-19] MEDS ORDERED: MAGNESIUM HYDROXIDE SUSP 30 ML UDC PO PRN (09:37)
[2020-01-19] MEDS ORDERED: PROMETHAZINE HCL 25 MG in SODIUM CHLORIDE 0.9% 50 ML IV PRN ×2 (09:37→19:01)
[2020-01-19] MEDS ORDERED: LACTATED RINGER'S 1,000 ML IV SCH (09:45)
[2020-01-19] MEDS ORDERED: OXYTOCIN 30 UNITS/500 ML BAG IV PRN ×2 (09:48→21:58)
[2020-01-19] MEDS ORDERED: miSOPROStoL 50 MCG TAB PO ONE (09:48)
[2020-01-19] MEDS ORDERED: PENICILLIN G POTASSIUM 6 MU in DEXTROSE 5% 250 ML IV ONE (10:00)
[2020-01-19] MEDS ORDERED: OXYTOCIN 20 UNITS in LACTATED RINGER'S 1,000 ML IV SCH (10:00)
[2020-01-19 10:17] LABS: Hematocrit (blood only) 31.9 % (37-47); Hemoglobin 10.6 g/dL (12.0-16.0); Mean Corpuscular Hemoglobin 31.5 pg (25-34); Mean Corpuscular Hgb Conc 33.2 g/dL (32-36); Mean Corpuscular Volume 94.7 fL (80-100); Mean Platelet Volume 10.8 fL (7.4-10.4); Platelet Count 163 K/uL (130-400); RDW Coefficient of Variation 13.4 % (11.5-14.5); RDW Standard Deviation 46.4 fL (36.4-46.3); Red Blood Count 3.37 M/uL (4.2-5.4)
--- NOTE | 2020-01-19 10:42 | Progress Note ---
Date of Service January 19, 2020 Assessment & Plan Admission and Anticipated Discharge Date Admission Date: January 19, 2020 Subjective Met pt and spouse Reviewed PNC with pt Induction for dates FHR; CAT1 Ctx; minimal VE; /post Starting induction with Cytotec Results & Data ([facility]) Vital Signs (Past 12 Hours) Vital Signs Temp Pulse Resp BP 01/19/20 07:53 36.9 C 73 20 124/70
[2020-01-19] MEDS ORDERED: SIMETHICONE 80 MG CHEW PO SCH (13:00)
[2020-01-19] MEDS: LACTATED RINGER'S 1,000 ML IV PRN ×2 (15:09→19:48)
[2020-01-19] MEDS: PENICILLIN G POTASSIUM 3 MU in DEXTROSE 5% 100 ML IV PRN ×2 (18:41→22:58)
[2020-01-19] MEDS ORDERED: ePHEDrine sulfate 50 MG/ML AMP ONE (18:49)
[2020-01-19] MEDS ORDERED: SODIUM CHLORIDE 0.9% INJ 10 ML VIAL ONE (18:49)
[2020-01-19] MEDS ORDERED: fentaNYL citrate 100 MCG/2 ML VIAL ONE (18:50)
[2020-01-19] MEDS ORDERED: fentaNYL 2MCG/ML ROPIVACAINE 1.25MG/ML 100 ML BAG EPI ONE (18:50)
[2020-01-19] MEDS ORDERED: BUPIVACAINE 0.25% 30 ML VIAL ONE (18:50)
[2020-01-19] MEDS ORDERED: NALOXONE HCL 1 MG in SODIUM CHLORIDE 0.9% 1000ML 1,000 ML IV PRN (19:01)
[2020-01-19] MEDS ORDERED: ePHEDrine sulfate 50 MG/ML AMP IV PRN (19:01)
[2020-01-19] MEDS ORDERED: NALOXONE HCL 0.4 MG/1 ML VIAL/CARP IV PRN (19:01)
[2020-01-19] MEDS: fentaNYL 2MCG/ML ROPIVACAINE 1.25MG/ML 100 ML BAG EPI PRN ×2 (19:30→22:56)
--- NOTE | 2020-01-19 19:54 | Anesthesiology Consultation ---
Date of Service January 19, 2020 Assessment & Plan ASA ASA3 Proposed Anesthesia Anesthesia Type: Labor Epidural Risk / Benefits Reviewed With: PT / POA / Parent / Guardian, Accepts Plan and Informed Consent Obtained History Height/Weight Height: 5 ft 4 in Weight: 152 kg Allergies Allergy/AdvReac Type Severity Reaction Status Date / Time acetaminophen Allergy Severe POISONING Verified 01/19/20 07:50 pollen extracts Allergy Intermediate runny Verified 01/19/20 07:49 eyes, sneezing Medications Home Medications Medication Instructions Recorded Confirmed Last Taken PNV cmb#95-ferrous fumarate-FA 1 tab PO DAILY 10/08/19 01/19/20 01/12/20 21:00 [] Active Medications Generic Name Dose Route Start Last Admin Trade Name Freq PRN Reason Stop Dose Admin Lactated Ringer's 1,000 mls @ 125 mls/hr 01/19/20 09:48 01/19/20 19:48 Lr IV 01/21/20 09:47 125 mls/hr .Q8H PRN Administration L&D Protocol Protocol Penicillin G Potassium 3 mu/ 106 mls @ 100 mls/hr 01/19/20 09:48 01/19/20 18:41 Dextrose IV 01/29/20 09:47 100 mls/hr Q4H PRN Administration Give until delivery Ropivacaine 100 ml 01/19/20 19:01 01/19/20 19:30 Fentanyl 2mcg/Ml Ropivacaine 1.25mg/Ml 100 Ml Bag EPI 01/20/20 19:00 100 ml PRN PRN Administration Pain R/T Labor Protocol Past Medical History Medical History Asthma Asthma Bronchitis Bronchitis Dysfunctional uterine bleeding Epilepsy Female pelvic pain Overdose on Tylenol Seizures Stomach ulcer Threatened miscarriage Exercise / Class Metabolic Activity II 4-5 Yardwork/Stairs/Walk up hill Past Family History Family History Other Seizures Past Surgical History Surgical History History of wisdom tooth extraction Past Anesthesia History No Hx of Anesthesia Complications and No Family Hx of Anesthesia Complications History of PONV No Hx of PONV and No Hx of Motion Sickness Social History Smoking Status: Current every day smoker tobacco type: cigarettes Smoking cigarettes per day: 10 Do You Dip or Chew Tobacco: No Hx Alcohol Use: No Hx Substance Use: No Review of Systems denies fever/cough/ colds/ chest pain/ SOB/ KRYSTLE denies KRYSTLE Physical Exam Vital Signs Last Vital Signs Temp 36.8 C 01/19/20 19:15 Pulse 79 01/19/20 19:49 Resp 18 01/19/20 19:15 BP 117/57 L 01/19/20 19:49 Pulse Ox 100 01/19/20 19:47 ENMT Mouth: no TMJ abnormality and no dentition abnormality Thyromental Distance: > or= 3.5 Finger Breadths Mallampati Class: II Neck neck extension not limited Respiratory normal respiratory effort; no respiratory distress Auscultation: lungs clear to auscultation bilaterally Cardiovascular Rate/Rhythm: regular rate and regular rhythm Neurologic moves all extremities Psychiatric Orientation: alert and oriented x 3 Testing Laboratory Results 01/19/20 10:04
[2020-01-19] MEDS: CALCIUM CARBONATE 500 MG CHEWABLE TAB PO PRN (20:17)
[2020-01-19] MEDS ORDERED: DOCUSATE SODIUM 100 MG CAP PO SCH (21:00)
--- NOTE | 2020-01-19 21:58 | Progress Note ---
Date of Service January 19, 2020 Assessment & Plan Admission and Anticipated Discharge Date Admission Date: January 19, 2020 Subjective Pt doing well FHR; CAT1 Ctx 1-3 mons AROM- clear VE 4/75/-2 Pitocin augmentation Results & Data ([facility]) Vital Signs (Past 12 Hours) Vital Signs Temp Pulse Resp BP Pulse Ox 01/19/20 21:52 64 96 01/19/20 21:50 77 93 01/19/20 21:49 109 H 88/60 L 01/19/20 21:47 116 H 96 01/19/20 21:42 67 96 01/19/20 21:37 65 97 01/19/20 21:36 57 L 93/52 L 01/19/20 21:32 61 95 01/19/20 21:30 18 01/19/20 21:27 62 96 01/19/20 21:22 63 96 01/19/20 21:19 59 L 108/59 L 01/19/20 21:17 63 97 01/19/20 21:12 60 96 01/19/20 21:07 63 97 01/19/20 21:05 59 L 90/50 L 01/19/20 21:02 61 95 01/19/20 21:00 18 01/19/20 20:57 60 96 01/19/20 20:52 60 96 01/19/20 20:50 61 98/57 L 01/19/20 20:47 59 L 97 01/19/20 20:42 69 96 01/19/20 20:37 55 L 97 01/19/20 20:35 56 L 100/54 L 01/19/20 20:32 60 97 01/19/20 20:30 18 01/19/20 20:27 61 97 01/19/20 20:22 62 97 01/19/20 20:17 84 98 01/19/20 20:14 59 L 102/55 L 01/19/20 20:12 104 H 98 01/19/20 20:09 57 L 117/57 L 01/19/20 20:07 62 97 01/19/20 20:02 62 99 01/19/20 20:00 18 01/19/20 19:59 76 117/53 L 01/19/20 19:57 60 99 01/19/20 19:56 69 114/56 L 01/19/20 19:52 68 100 01/19/20 19:49 79 117/57 L 01/19/20 19:47 68 100 01/19/20 19:42 73 100 01/19/20 19:40 18 01/19/20 19:39 78 135/76 01/19/20 19:38 18 01/19/20 19:37 77 100 01/19/20 19:36 18 01/19/20 19:35 82 126/57 L 01/19/20 19:34 18 01/19/20 19:33 62 122/56 L 01/19/20 19:32 157 H 18 85 L 01/19/20 19:31 65 118/60 01/19/20 19:30 18 01/19/20 19:29 56 L 108/62 01/19/20 19:28 18 01/19/20 19:27 63 116/59 L 01/19/20 19:23 77 144/63 H 01/19/20 19:21 69 100 01/19/20 19:16 77 100 01/19/20 19:15 36.8 C 18 01/19/20 19:11 73 86 L 01/19/20 19:10 69 86 L 01/19/20 19:06 69 100 01/19/20 18:57 36.7 C 59 L 20 123/70 01/19/20 14:48 36.7 C 61 20 114/55 L 01/19/20 11:33 59 L 120/59 L
[2020-01-19] MEDS ORDERED: NURSING L&D Epidural Breakthrough Pain Update ONE (23:43)
[2020-01-19] MEDS ORDERED: METHYLERGONOVINE MALEATE 0.2 MG/ML AMP ONE (23:58)
[2020-01-20] MEDS ORDERED: METHYLERGONOVINE MALEATE 0.2 MG/ML AMP ONE (00:12)
[2020-01-20] MEDS ORDERED: METHYLERGONOVINE MALEATE 0.2 MG/ML AMP IM ONE (00:34)
[2020-01-20] MEDS ORDERED: BENZOCAINE 20% AER SPR 82.5 GM CAN EXT PRN (00:34)
[2020-01-20] MEDS ORDERED: miSOPROStoL 200 MCG TAB PR ONE (00:34)
[2020-01-20] MEDS ORDERED: HYDROCORTISONE ACETATE 25 MG SUPP PR PRN (00:34)
[2020-01-20] MEDS ORDERED: DIPHTHERIA/TETANUS/PERTUSSIS 0.5 ML SYR/VIAL IM ONE (00:34)
[2020-01-20] MEDS ORDERED: OXYTOCIN 30 UNITS/500 ML BAG IV PRN (00:34)
[2020-01-20] MEDS ORDERED: ACETAMINOPHEN 325 MG TAB PO PRN (00:34)
[2020-01-20] MEDS ORDERED: SUPERCREAM 0.870% 15 GM JAR EXT PRN (00:34)
[2020-01-20] MEDS ORDERED: bisacodyL 10 MG SUPP PR PRN (00:34)
[2020-01-20] MEDS: CALCIUM CARBONATE 500 MG CHEWABLE TAB PO PRN (01:08)
[2020-01-20] MEDS: IBUPROFEN 600 MG TAB PO PRN ×4 (01:09→19:36)
[2020-01-20] MEDS ORDERED: diphenhydrAMINE Capsule 25 MG CAP PO ONE (03:41)
--- NOTE | 2020-01-20 04:18 | Delivery Summary ---
DATE OF OPERATION: 01/19/2020 DELIVERY NOTE The patient delivered a live in left occiput anterior presentation. She had two nuchal cords, which were clamped and cut. Infant was delivered, placed on mother's abdomen. Infant's weight and Apgars in the pediatric record. Cord blood was obtained. Placenta spontaneously delivered. Inspection of the placenta shows a normal looking placenta with 3-vessel cord. Inspection of the perineum shows no laceration or tears. Estimated blood loss is 450 mL. All instruments were removed from the vagina and accounted for x2 including sponges and retractors. Rectal exam post-delivery showed good sphincter tone. Baby and mother are doing well. There was good hemostasis. Both baby and mother are in recovery. I attest to the content of the Intraoperative Record and any orders documented therein. Any exception s are noted below.
[2020-01-20] MEDS: DOCUSATE SODIUM 100 MG CAP PO SCH (07:14)
[2020-01-20] MEDS: PRENATAL VITAMIN 1 TAB PO SCH (07:14)
[2020-01-20] MEDS ORDERED: PRENATAL VITAMIN 1 TAB PO SCH (08:00)
[2020-01-20] MEDS ORDERED: FERROUS SULFATE 325 MG TAB PO SCH (08:00)
--- NOTE | 2020-01-20 08:58 | Anesthesia Procedure Note ---
Date of Service January 20, 2020 Anesthesia Post Epidural Note Vital Signs Vital Signs: Temp Pulse Resp BP Pulse Ox 36.6 C 64 18 118/58 L 98 01/20/20 07:15 01/20/20 07:15 01/20/20 07:15 01/20/20 07:15 01/20/20 07:15 Pain Intensity Lower Abdomen: Pain Intensity: 5 Notes Mental Status: alert / awake / arousable and participated in evaluation Nausea / Vomiting: adequately controlled Pain: adequately controlled Airway Patency, RR, SpO2: stable & adequate BP & HR: stable & adequate Hydration State: stable & adequate Neuraxial Anesthesia: was administered and sensory block is resolving Anesthetic Complications: no major complications apparent and Pt Satisfied with anesthetic care Epidural: Removed without complications and With tip intact Notes: Epidural site clean, dry and intact. No signs of edema, erythema or bruising at insertion site. Pt instructed to request anesthesia if she has residual lower extremity numbness or if she develops lower extremity pain or weakness, back pain or headache.
[2020-01-20] MEDS ORDERED: bisacodyL 5 MG TABEC PO SCH (20:00)
[2020-01-21 07:30] LABS: Hematocrit (blood only) 33.8 % (37-47); Hemoglobin 11.1 g/dL (12.0-16.0); Mean Corpuscular Hemoglobin 31.4 pg (25-34); Mean Corpuscular Hgb Conc 32.8 g/dL (32-36); Mean Corpuscular Volume 95.8 fL (80-100); Mean Platelet Volume 11.7 fL (7.4-10.4); Platelet Count 157 K/uL (130-400); RDW Coefficient of Variation 13.4 % (11.5-14.5); RDW Standard Deviation 46.6 fL (36.4-46.3); Red Blood Count 3.53 M/uL (4.2-5.4); White Blood Count 9.27 K/uL (4.8-10.8)
[2020-01-21] MEDS: DOCUSATE SODIUM 100 MG CAP PO SCH (08:27)
[2020-01-21] MEDS: PRENATAL VITAMIN 1 TAB PO SCH (08:27)
[2020-01-21] MEDS ORDERED: bisacodyL 10 MG SUPP PR PRN (09:38)
--- NOTE | 2020-01-21 10:52 | Obstetrical Progress Note ---
Date of Service January 21, 2020 Assessment & Plan (1) Normal vagina: PPD #2 doing well d/c home with instructions Subjective Ambulation: ambulating normally Voiding: no voiding problems Passing Gas:: Yes Diet Tolerance:: clear liquids Lochia:: Small Feeding Type:: breast feeding Review of Systems All systems reviewed & are unremarkable except as noted in HPI & below Physical Exam Constitutional WD/WN, vitals as above well developed and well nourished Eyes PERRL, conjunctivae normal, anicteric sclerae ENMT external ear and nose normal, oropharynx normal Neck trachea midline, no thyromegaly Respiratory normal respiratory effort, lungs clear to auscultation Cardiovascular RRR, no murmur, no edema Chest (Breasts) normal inspection/palpation of breasts Gastrointestinal (Abdomen) normal bowel sounds, soft, nontender, no hepatosplenomegaly Musculoskeletal no cyanosis or clubbing, extremities motor strength 5/5 Skin no rashes, warm and dry + incision (Clean,dry and intact) Neurologic patellar DTR's 2+ bilat, sensation intact Psychiatric A+Ox3, euthymic affect Genitourinary normal external appearance Lymphatic no cervical or axillary lymphadenopathy Results & Data ([facility]) Vital Signs (Past 12 Hours) Vital Signs Temp Pulse Pulse Resp BP Pulse Ox 01/21/20 08:33 36.9 C 62 18 108/69 01/21/20 08:00 36.5 C 57 L 18 101/63 100 01/21/20 03:29 36.6 C 53 L 18 110/65 01/21/20 00:00 36.6 C 60 18 121/76 98
[2020-01-21] MEDS ORDERED: bisacodyL 5 MG TABEC PO SCH (20:00)
== END 2020-01-21 14:38 | disposition home or self-care (01) | DRG 807 ==
LOC: 4S3 17:52 → 4S1 01-19 07:44 → 4S2 01-20 11:20

== ENCOUNTER 2021-01-30 03:46 | Inpatient (IN) ==
[2021-01-30] MEDS ORDERED: OXYTOCIN 30 UNITS/500 ML BAG IV PRN ×2 (03:55→05:40)
[2021-01-30] MEDS ORDERED: LACTATED RINGER'S 1,000 ML IV PRN (03:55)
--- NOTE | 2021-01-30 04:13 | Obstetrical Progress Note ---
Date of Service January 30, 2021 Assessment & Plan Admission and Anticipated Discharge Date Admission Date: January 30, 2021 Subjective Patient is a 25yo at 40.4 wks presented in active labor and asking for epidural Ctxs started around 5 pm and got more closer and regular since 2 am No LOF/VB +FM's Cough + for about a week, and her COVID testing was negative Her has been complicated by h/o seizure disorder, not on meds, last seizure was years ago, not sure? anxiety, no meds smoking hypothyroidism GBS+ h/o singles, on eye only, never had genital HSV TIFFANI, borderline personality disorder She is screaming and asking for pain meds VE; 5-6 cm/ 80%/ -2, vertex, FHR Categ I Ctxs q 3-4 min Plan to admit, labs, epidural for pain, Cefazolin IV push for GBS, anticipate
[2021-01-30] MEDS ORDERED: ceFAZolin 2000MG 2,000 MG/15 ML SYR IV STA (04:15)
[2021-01-30 05:01] LABS: Hematocrit (blood only) 31.7 % (37-47); Hemoglobin 10.3 g/dL (12.0-16.0); Mean Corpuscular Hemoglobin 29.3 pg (25-34); Mean Corpuscular Volume 90.3 fL (80-100); Mean Platelet Volume 10.9 fL (7.4-10.4); Platelet Count 291 K/uL (130-400); RDW Coefficient of Variation 14.5 % (11.5-14.5); RDW Standard Deviation 47.6 fL (36.4-46.3); Red Blood Count 3.51 M/uL (4.2-5.4); White Blood Count 13.01 K/uL (4.8-10.8)
[2021-01-30] MEDS ORDERED: BUTORPHANOL TARTRATE 1 MG/ML VIAL ONE (05:14)
[2021-01-30 05:24] LABS: Mean Corpuscular Hgb Conc 32.5 g/dL (32-36)
[2021-01-30] MEDS ORDERED: SUPERCREAM 0.870% 15 GM JAR EXT PRN (05:40)
[2021-01-30] MEDS ORDERED: DIPHTHERIA/TETANUS/PERTUSSIS 0.5 ML SYR/VIAL IM ONE (05:40)
[2021-01-30] MEDS ORDERED: HYDROCORTISONE ACETATE 25 MG SUPP PR PRN (05:40)
[2021-01-30] MEDS ORDERED: bisacodyL 10 MG SUPP PR PRN (05:40)
[2021-01-30] MEDS ORDERED: MEASLES, MUMPS & RUBELLA VIRUS VIAL SQ ONE (05:40)
[2021-01-30] MEDS ORDERED: oxyCODONE/ACETAMINOPHEN 5mg/325mg TAB PO PRN (05:40)
[2021-01-30] MEDS ORDERED: BENZOCAINE 20% AER SPR 82.5 GM CAN EXT PRN (05:40)
[2021-01-30] MEDS ORDERED: LACTATED RINGER'S 1,000 ML IV SCH (05:45)
--- NOTE | 2021-01-30 05:50 | Delivery Summary ---
Vaginal Delivery Summary Date of Service January 30, 2021 Vaginal Delivery Summary Patient is a 25-year-old -0-0-4 no care, EDC of 01/26 by LMP, February 02 by third trimester ultrasound. She presented to labor and delivery with regular, painful contractions and in active labor. She desires epidural for pain but unable to get IV site and blood work due to patient not cooperating with nursing instructions. She finally got IV site and started her bolus and blood work and heart rate was reassuring. Her cervix was 5 to 6 cm, 70% effaced and head was at -2 station. heart rate was around 120s to 130s with good variability, no decelerations and some accelerations were present making her category 1. While she was waiting for epidural heart rate had a deceleration to 50s. She was jumping and moving up in the bed and not cooperating with instructions to be checked. After advised of by myself and multiple nurses she agreed to put on oxygen mask and came down in the bed to be checked. Her cervix was 8 cm dilated, 80% effaced and I AROM and and obtained dark meconium fluid. She was instructed to push since head was coming down quickly with contractions. We were unable to monitor the baby for 3 to 4 minutes while trying to get her on the bed. With 2 contractions her cervix became fully dilated and head was at +1 station. She pushed only twice and delivered the head without difficulty. Shoulders were delivered with minimal traction. Baby was delivered completely and he was completely covered with green meconium. Cord was clamped x2 and cut and baby was handed off to waiting pediatric team. See their note for details for resuscitation of infant. We then gave her 1 mg of IV Stadol for pain control. Vagina and perineum were checked for lacerations. They were intact, no lacerations were found. The placenta was found to be in the vagina and delivered spontaneously as intact and complete. I had to go in with the tip of ring forceps and retrieved some membranes and felt the uterus to be empty. EBL was 300 mL. Mom is stable and baby is in nursery under the care of pediatric team.
[2021-01-30] MEDS: DOCUSATE SODIUM 100 MG CAP PO SCH ×2 (08:02→20:42)
[2021-01-30] MEDS: IBUPROFEN 600 MG TAB PO PRN ×3 (08:02→17:43)
[2021-01-30] MEDS: FERROUS SULFATE 325 MG TAB PO SCH (08:02)
[2021-01-30] MEDS: PRENATAL VITAMIN 1 TAB PO SCH (08:02)
[2021-01-30 08:35] LABS: Appearance Urine Clear (Clear); Bacteria Urine Automated Negative (Negative); Bilirubin Urine Negative (Negative); Blood Urine 3+ (Negative); Color Urine Yellow; Glucose Urine UA Negative (Negative); Ketones Urine Negative (Negative); Leukocyte Esterase Urine Trace (Negative); Nitrite Urine Negative (Negative); Protein Urine Negative (Negative); RBC Urine Automated >30 /hpf (0-4); Specific Gravity Urine 1.013 (1.000-1.030); Urobilinogen Urine Negative (Negative); pH Urine 6.5 (4.5-7.5)
[2021-01-30 09:11] LABS: Amphetamines+Metham, Urine Neg (Neg); Barbiturates, Urine Neg (Neg); Benzodiazepine, Urine Neg (Neg); Cocaine, Urine Neg (Neg); MDMA (Ecstacy), Urine Neg (Neg); Methadone, Urine Neg (Neg); Opiate, Urine Neg (Neg); Phencyclidine, Urine Neg (Neg)
[2021-01-30 09:31] LABS: Hepatitis B Surf Ag Rflx Conf Neg (Neg); Rubella IgG Antibody Immune (Immune)
[2021-01-30 09:59] LABS: Hepatitis C IgG 13Yrs+Old_Rflx Neg (Neg)
[2021-01-30] MEDS: ACETAMINOPHEN 325 MG TAB PO PRN ×2 (14:21→20:19)
[2021-01-31] MEDS: IBUPROFEN 600 MG TAB PO PRN (02:05)
[2021-01-31 06:50] LABS: Hematocrit (blood only) 28.5 % (37-47); Hemoglobin 9.1 g/dL (12.0-16.0); Mean Corpuscular Hemoglobin 29.2 pg (25-34); Mean Corpuscular Hgb Conc 31.9 g/dL (32-36); Mean Corpuscular Volume 91.3 fL (80-100); Mean Platelet Volume 10.3 fL (7.4-10.4); Platelet Count 316 K/uL (130-400); RDW Coefficient of Variation 14.7 % (11.5-14.5); RDW Standard Deviation 48.2 fL (36.4-46.3); Red Blood Count 3.12 M/uL (4.2-5.4); White Blood Count 11.35 K/uL (4.8-10.8)
[2021-01-31] MEDS: FERROUS SULFATE 325 MG TAB PO SCH (08:10)
[2021-01-31] MEDS: DOCUSATE SODIUM 100 MG CAP PO SCH (08:11)
[2021-01-31] MEDS: PRENATAL VITAMIN 1 TAB PO SCH (08:11)
[2021-01-31] MEDS: ACETAMINOPHEN 325 MG TAB PO PRN (09:32)
--- NOTE | 2021-01-31 09:47 | Obstetrical Progress Note ---
Date of Service January 31, 2021 Assessment & Plan (1) Normal course: PPD #1 pt doing well transferred to [place]. pt wishes to be discharged home D/C home with instrcution Antibx for URI ordered Albuterol inhaler ordered Subjective Ambulation: ambulating normally Voiding: no voiding problems Passing Gas:: Yes Diet Tolerance:: regular diet Lochia:: Small Feeding Type:: breast feeding Review of Systems All systems reviewed & are unremarkable except as noted in HPI & below Physical Exam Constitutional WD/WN, vitals as above well developed and well nourished Eyes PERRL, conjunctivae normal, anicteric sclerae Neck trachea midline, no thyromegaly Respiratory normal respiratory effort, lungs clear to auscultation Auscultation: + wheezes; no crackles and no rales Cardiovascular RRR, no murmur, no edema Gastrointestinal (Abdomen) normal bowel sounds, soft, nontender, no hepatosplenomegaly Uterus is below umbilicus Musculoskeletal no cyanosis or clubbing, extremities motor strength 5/5 Skin no rashes, warm and dry Neurologic patellar DTR's 2+ bilat, sensation intact Psychiatric A+Ox3, euthymic affect Genitourinary normal external appearance Results & Data ([facility]) Vital Signs (Past 12 Hours) Vital Signs Temp Pulse Resp BP Pulse Ox 01/31/21 07:15 36.8 C 72 17 121/77 99 01/31/21 03:10 36.6 C 60 16 138/83 99 01/30/21 23:10 36.8 C 64 16 117/70 99
[2021-01-31] MEDS ORDERED: bisacodyL 5 MG TABEC PO SCH (20:00)
== END 2021-01-31 10:40 | disposition home or self-care (01) | DRG 807 ==
LOC: OPB 03:46 → 4S1 03:49 → 4S2 07:49